=== PATIENT | female | born 1955 | race Caucasian/White ===

== ENCOUNTER 2017-02-18 21:16 | Inpatient (IN) | payer OTHER ==
[~2017-02-18] VITALS: Ht 162.6 cm; Wt 75.9 kg
--- NOTE | 2017-02-18 21:58 | NUR ---
LAB AT BEDSIDE
--- NOTE | 2017-02-18 21:59 | NUR ---
PT MEDICATED PER MD ORDERS.
[2017-02-18 22:10] LABS: BASOPHIL % 0.2 % (0-2); PLATELET COUNT 220 x10^3mcL (130-400); RED CELL DISTRIBUTION WIDTH 13.2 % (11.5-14.5)
[2017-02-18 22:21] LABS: CALCIUM 9.3 mg/dL (8.5-10.1); CARBON DIOXIDE 25.1 mmol/L (21-32); CREATININE SERUM 1.1 mg/dL (0.6-1.0); POTASSIUM SERUM 3.5 mmol/L (3.5-5.1)
[2017-02-18 22:27] LABS: ALBUMIN 3.8 g/dL (3.4-5.0); BILIRUBIN TOTAL 0.4 mg/dL (0.20-1.00); TOTAL PROTEIN, SERUM 7.5 g/dL (6.4-8.2)
--- NOTE | 2017-02-18 22:44 | NUR ---
PT PRESENTS TO ED WITH CHEIF COMPLAINT OF L ARM PAIN X 2 DAYS. PT STATES THAT ON WEDNESDAY (ABOUT 6 DAYS AGO) [place] DARK AND FELT THAT SOMETHING BIT HER. PT STATES THAT SHE DIDNT THINK ANYTHING OF IT OR EXPERIENCE ANY COMPLICATIONS UNTIL 2 DAYS AGO WHEN THE INSECT BITE STARTED TO SWELL AND BECOME PAINFUL AMN RED AND HOT. PT STATES THAT THE PAIN STARTS IN HER L FOREARM AND SPREADS UPWARD TO HER L ARMPIT. PT STATES HER PAIN IS 10/10. CHIQUIS IS SIGNIFICANT SWELLING NOTED TO HER L ARM. THERE IS A LARGE AREA OF ERYTHEMA AND THERE ARE TWO BRIGHT RED LINES RUNNING UP HER ARM IN THE AREA WHERE HER VEINS ARE LOCATED. . PT STATES SHE WAS ALSO EXPERIENCING STERNAL CP 5/10 AND TIGHT IN QUALITY EARLIER, NON PROVOKED, NON RADIATING. PT STATES SHE ALSO FELT HER BACK WAS SPASMING. PT REPORTS THAT SHE WAS ALSO FEELING CHILLS AND NAUSEATED. PT DENIES ABDOMINAL PAIN, VOMITING, REPORTS 2 EPISODES OF DIARREHA. PTS SKIN IS HOT IN THE AFFECTED AREA OF THE L ARM. SKIN IS SLIGHTLY MOIST. PT STABLE. CALL LIGHT WITHIN REACH. WILL CONTINUE TO MONITOR.
--- NOTE | 2017-02-18 23:38 | NUR ---
REPORT CALLED TO ARTHUR HAYWARD TO ASSUME CARE OF PT.
[2017-02-18 23:58] LABS: MAGNESIUM 1.7 mg/dL (1.8-2.4); PHOSPHOROUS 2.3 mg/dL (2.5-4.9)
[2017-02-18 23:59] LABS: CHOLESTEROL/HDL RATIO 3.9
[2017-02-19] VITALS (7 sets, daily range): BP systolic 99–137; BP diastolic 55–77
[2017-02-19 00:02] LABS: FREE T4 1.31 ng/dL (0.76-1.46); FREE THYROXINE INDEX 3.6 ug/dL (1.4-4.5); T4(THYROXINE) 9.4 ug/dL (4.7-13.3)
[2017-02-19 00:53] LABS: T3 TOTAL 1.04 ng/mL
--- NOTE | 2017-02-19 01:15 | NUR ---
REC'D AOX4, SPEECH CLEAR. DENIES DIZZINES AND STUBBS. STATES PAIN MEDIATION HAS RELIEVED PAIN ON LFA. NOTED SWELLING AND REDNESS TO LFA WITH DRAWN MARKINGS. ATTACHED TELE 30. DENIES CHEST PAIN. IV SITE WNL. ORIENTED PT TO ROOM AND SURROUNDINGS. CALL LIGHT WITHIN REACH, PROVIDED REPORT TO MAINOR GIBSON
--- NOTE | 2017-02-19 01:20 | NUR ---
RECEIVED PATIENT IN BED AWAKE, ALERT AND ORIENTED WITH C/O MODERATE PAIN TO LEFT ARM AFTER RECEIVING PAIN MEDS IN ER. PHOTO OF LEFT ARM SWELLING TAKEN. KEPT IN COMFORT AND ORIENTED TO ROOM AND DEVICES. TELE# 30 NSR ON MONITOR. WITH ADMISSION ORDERS FROM DR RICHARDS AND CARRIED OUT. STARTED ON NS INFUSING AT 100ML/HR. WILL CONTINUE TO MONITOR. CALL LIGHT WITHIN REACH.
--- NOTE | 2017-02-19 03:30 | NUR ---
VOIDED, SPECIMEN COLLECTED FOR UA, URC AND UDS, WOUND CULTURE DONE.
--- NOTE | 2017-02-19 05:08 | NUR ---
SLEPT FAIRLY DENIES PAINTO LEFT ARM SINCE PATIENT ADMITTED TO FLOOR. ALL NEEDS ATTENDED.
--- NOTE | 2017-02-19 05:37 | NUR ---
TELE MONITOR, DISCONTINUED PER MD.
[2017-02-19 06:09] LABS: BASOPHIL % 0.2 % (0-2); PLATELET COUNT 182 x10^3mcL (130-400); RED CELL DISTRIBUTION WIDTH 13.4 % (11.5-14.5)
[2017-02-19 06:24] LABS: CALCIUM 8.5 mg/dL (8.5-10.1); CARBON DIOXIDE 23.8 mmol/L (21-32); CHLORIDE SERUM 108 mmol/L (98-107); CREATININE SERUM 0.9 mg/dL (0.6-1.0); GFR1 > 60 mL/min; GLUCOSE SERUM 104 mg/dL (74-106); POTASSIUM SERUM 3.7 mmol/L (3.5-5.1); SODIUM SERUM 141 mmol/L (136-145)
--- NOTE | 2017-02-19 07:45 | NUR ---
ALERT AND ORIENTED. BREATHING FREELY ON RA. INDEPENDENT W ADL'S. VSS. NS INFUSING 100 CC HOUR. NPO EXCEPT MEDS FOR WOUND CONSULT. LEFT FA RED,SWOLLEN AND PAINFUL 6/10 STINGING. RAISED LUMP ON FA NOT OPEN. WOUND CX PENDING. CALL LIGHT WITHIN REACH.
[2017-02-19 07:56] LABS: AMPHETAMINE QUAL UR NONE DETECTED (NEG <=1000)
[2017-02-19 08:22] LABS: UA SPECIFIC GRAVITY 1.015 (1.005-1.035); microscopic required? YES; urine erythrocyte 2+ (NEGATIVE)
[2017-02-19 08:24] LABS: MAGNESIUM 3.1 mg/dL (1.8-2.4); PHOSPHOROUS 3.4 mg/dL (2.5-4.9)
--- NOTE | 2017-02-19 10:50 | NUR ---
PT LEFT FOR I&D TO LEFT FA ABSCESS. CONSENTS SIGNED. IV HL'D. CHLORHEXIDINE BATH.
--- NOTE | 2017-02-19 12:45 | NUR ---
BACK FROM OR S/P I&D TO LEFT FA. AWAKE AND RESPONSIVE BREATHING FREELY ON RA. DRAINAGE TO LEFT FA SHOWING THROUGH GAUZE. NO COMPLETELY THROUGH YET.LEFT UPPER EXTREMITIY ELEVATED ON PILLOW W/ KPAD. RESTARTED NS 100 CC HOUR. BP 104/74 HR 87, T-97, SAT 96% RA, R-16. PLACED PT ON SCD'S. CALL LIGHT WITHIN REACH. COMFORTABLE AT THIS TIME.
--- NOTE | 2017-02-19 13:02 | NUR ---
echocardiogram pending patient requesting test be done after she has lunch
--- NOTE | 2017-02-19 14:44 | NUR ---
ECHO COMPLETED. RESTING COMFORTABLY WITH LEFT ARM ELEVATED ON PILLOW AND KPAD.
--- NOTE | 2017-02-19 17:58 | NUR ---
SITTING UP EATING DINNER WITH SISTER AT BEDSIDE. NO FURTHER DRAINAGE NOTED SINCE PT CAME UP FROM SURGERY/RECOVERY TO LEFT FA. PT KEEPS LEFT ARM ELEVATED ON PILLOW COVERED WITH KPAD. PT GOT HERSELF UP TO BR AND BACK SINCE SURGERY. NS INFUSING 100 CC HOUR. CONTINUES ON UNASYN IV ABX. CALL LIGHT WITHIN REACH.
--- NOTE | 2017-02-19 19:38 | NUR ---
RECEIVED REPORT FROM DAY SHIFT RN. PT SITTING UP IN BED. IV ON RAC, NS INFUSING. NO C/O PAIN AT THIS TIME. LEFT ARM ELEVATED WITH PILLOW, DRESSING C,D,I. K-PAD IN PLACE. FAMILY AT BEDSIDE. INSTRUCTED PT TO CALL IF ASSISTANCE IS NEEDED. CALL LIGHT WITHIN REACH.
[2017-02-20 05:48] VITALS: BP 101/55
[2017-02-20 06:31] LABS: CALCIUM 8.7 mg/dL (8.5-10.1); CARBON DIOXIDE 23.7 mmol/L (21-32); CHLORIDE SERUM 110 mmol/L (98-107); CREATININE SERUM 0.8 mg/dL (0.6-1.0); GFR1 > 60 mL/min; GLUCOSE SERUM 118 mg/dL (74-106); MAGNESIUM 2.1 mg/dL (1.8-2.4); PHOSPHOROUS 3.3 mg/dL (2.5-4.9); POTASSIUM SERUM 3.8 mmol/L (3.5-5.1); SODIUM SERUM 143 mmol/L (136-145)
[2017-02-20 06:43] LABS: BASOPHIL % 0.3 % (0-2); PLATELET COUNT 183 x10^3mcL (130-400); RED CELL DISTRIBUTION WIDTH 13.3 % (11.5-14.5)
--- NOTE | 2017-02-20 07:02 | NUR ---
PT SLEPT WELL LAST NIGHT. C/O HEADACHE X1, MEDICATED WITH TYLENOL. NO DISTRESS NOTED. LEFT FOREARM ELEVATED WITH PILLOW. DRESSING INTACT. ALL NEEDS ATTENDED TO. WILL ENDORSE CARE TO DAY SHIFT RN.
--- NOTE | 2017-02-20 08:00 | NUR ---
ALERT AND ORIENTED. BREATHING FREELY ON RA. DENIES ANY PAIN IN HER LEFT ARM AT THIS TIME. ARM IS ELEVATAED ON PILLOW COVERED WITH KPAD. NO TELE. VSS. NS INFUSING 50 CC HOUR. DRESSING TO LEFT FA STAINED WITH SEROSANGUINOUS FLUID,DRY. WEARING SCD'S. CALL LIGHT WITHIN REACH. INDEPENDENT W ADL'S.
[2017-02-20 09:04] VITALS: BP 120/76
--- NOTE | 2017-02-20 09:21 | NUR ---
RECEIVED REPORT FROM LAB PT IS MRSA (+) NARES. INFORMED DR. CAMARGO. ORDERED BACTROBAN AND HIBICLENS.. PLACED IN CONTACT ISOLATION.
--- NOTE | 2017-02-20 12:27 | NUR ---
REPORTED FROM LAB WOUND CX AND TISSUE SAMPLE FROM LEFT FA ABSCESS IS MRSA (+). INFORMED DR. CAMARGO.
--- NOTE | 2017-02-20 15:38 | NUR ---
REMOVED EXSISTING DRESSING. CLEANSED W NS, APPLIED THERAHONEY AND COVERED WITH CLEAN GAUZE. TOLERATED WELL. DR. BAE HAD PREVIOUSLY REMOVED PACKING AND SMALL AMT NECROTIC TISSUE AROUND SITE/OPENING. SCANT AMT YELLOWISH DRAINAGE, SMALL AMT BEIGE SLOUGH INSIDE WOUND, SKIN AROUND SITE RED WARM AND HARD.
[2017-02-20 18:59] VITALS: BP 136/73
--- NOTE | 2017-02-20 19:30 | NUR ---
RESTING QUIELTY. SEEN BY DR. CAMARGO AND DR. BAE TODAY. NEW ORDER FOR DRESSING CHANGES TO LEFT FA ABSCESS. DRESSING CHANGE X 1 THIS SHIFT. TORADOL HELPFUL FOR LEFT ARM PAIN. NS INFUSING 50 CC HOUR. STARTED ON CLEOCIN TODAY. UNASYN DC'D. INDEPENDENT W ADL'S. NO TELE. VSS. CALL LIGHT WITHIN REACH. WEARING SCD'S.
--- NOTE | 2017-02-20 19:35 | NUR ---
RECEIVED Pt AAOX4 CALM AND COOPERATIVE. DENIES ANY CHEST PAIN. LUNG SOUNDS ARE CTA BILATERALLY. EDEMA TO LFA WITH DRESSING IN PLACE CDI. DENIES ANY PAIN TO AREA, WARM TO TOUCH. IV SITE TO RAC PATENT. ACTIVE BOWEL SOUNDS X4 QUADS. DENIES ANY ABD DISCOMFORT. VOIDS FREELY. RADIAL AND PEDAL PULSES PRESENT TO ALL EXTREMITIES. Pt IS AMBULATORY. SCD'S IN PLACE. RE-ORIENTED TO ROOM AND CALL LIGHT SYSTEM WITHIN EASY REACH. WILL CONTINUE TO MONITOR.
[2017-02-20 21:25] VITALS: BP 105/66
--- NOTE | 2017-02-20 22:49 | NUR ---
Pt RESTING QUIETLY, POSSIBLY SLEEPING. WILL PERFORM DRESSING CHANGE ONCE SHE'S AWAKE.
--- NOTE | 2017-02-20 22:58 | NUR ---
DRESSING TO LFA PERFORMED, NO DRAINNAGE NOTED, REMAINS SWOLLEN, WARM TO TOUCH AND RED, DENIES ANY PAIN. WILL CONTINUE TO MONITOR.
--- NOTE | 2017-02-21 02:56 | NUR ---
MEDICATED WITH PEPCID PO AND TUMS FOR HEARTBURN.
--- NOTE | 2017-02-21 05:04 | NUR ---
NO SIGNIFICANT CHANGES NOTED OVER NIGHT. NO FURTHER C/O PAIN TO LFA/INCISION. DRESSING CHANGED ORDERED. NEW IV STARTED TO RIGHT WRIST AREA. CONTINUES TO REST QUIETLY. SAFETY AND COMFORT MEASURES REMAIN IN PLACE. WILL CONTINUE TO MONITOR.
[2017-02-21 05:49] LABS: BASOPHIL % 0.4 % (0-2); PLATELET COUNT 179 x10^3mcL (130-400); RED CELL DISTRIBUTION WIDTH 13.3 % (11.5-14.5)
[2017-02-21 06:01] LABS: CALCIUM 8.8 mg/dL (8.5-10.1); CHLORIDE SERUM 108 mmol/L (98-107); CREATININE SERUM 0.9 mg/dL (0.6-1.0); GFR1 > 60 mL/min; GLUCOSE SERUM 85 mg/dL (74-106); MAGNESIUM 1.8 mg/dL (1.8-2.4); PHOSPHOROUS 3.7 mg/dL (2.5-4.9); SODIUM SERUM 144 mmol/L (136-145)
[2017-02-21 06:05] VITALS: BP 122/76
--- NOTE | 2017-02-21 07:04 | NUR ---
I HAVE REVIEWED THE DATA COLLECTION BY KATHY (NAME): JOE VALERO ENTERED ON (DATE/TIME): 02/20/17 7 PM -7 AM I CONCUR WITH THE DATA AND ANY EXCEPTIONS OR COMMENTS ARE LISTED BELOW:
--- NOTE | 2017-02-21 07:30 | NUR ---
REPORT RECIEVED PT STABLE. PT IS A/O X4 ABLE TO MAKE NEEDS KNOWN. NO COMPLAINTS OF SOB OR CP AT THIS TIME. PAIN AT A TOLERABLE LEVEL. DRESSING SITE IS CDI. MED SURG PT. PULSES EQUAL BILATERAL EDEMA TO L ARM NOTED. SCDS IN PLACE. PT ON RA. IV TO THE RW INFUSING. CALL LIGHT IN REACH WILL CONTINUE TO MONITOR.
[2017-02-21 10:11] VITALS: BP 113/63
[2017-02-21] MEDS ORDERED: LAC PO (10:47)
[2017-02-21] MEDS ORDERED: HIBICLENS118 ML TOP (10:48)
[2017-02-21] MEDS ORDERED: BACO TOP (10:48)
[2017-02-21] MEDS ORDERED: CLINDAMYCIN300 M1 PO (10:49)
[2017-02-21] MEDS ORDERED: NAPROXEN500 MG PO (10:50)
[2017-02-21 11:55] VITALS: BP 113/63
--- NOTE | 2017-02-21 15:09 | NUR ---
DISCHARGE INSTRUCTIONS GIVEN TO PT. IV DC'D INTACT. PICTURES TAKEN AND IN THE CHART. ALL BANDS REMOVED. SCRIPTS GIVEN TO PT. ALL BELONGING WITH PT, ACCOMPANIED BY SAW HANDLE ASSEMBLER OFF THE FLOOR. WOUND CARE PREFORMED AND SUPPLIES PROVIDED TO PT.
== END 2017-02-21 15:11 | disposition home or self-care (01) | DRG 853 ==
LOC: ED 21:16 → MU 23:02 → DU 23:02 → MU 02-19 05:26
PROVIDERS: Emergency Medicine; Family Medicine; Neuromusculoskeletal Medicine, Sports Medicine; ADMIT Family Medicine
PROC: 0J9H0ZZ Drainage of Left Lower Arm Subcutaneous Tissue and Fascia, Open Approach (ICD-10-PCS; principal; 2017-02-19 10:30)
DX: A41.9 Sepsis, unspecified organism (principal); N17.0 Acute kidney failure with tubular necrosis; L03.114 Cellulitis of left upper limb; I82.612 Acute embolism and thrombosis of superficial veins of left upper extremity; E83.42 Hypomagnesemia; E78.5 Hyperlipidemia, unspecified; Z98.1 Arthrodesis status; E83.39 Other disorders of phosphorus metabolism
CPT/HCPCS: 80307; 83880; 84439; C9113; J0295; J1885; J2405; J3010; J3475; J3490; J7030; J7120; Q0092